=== PATIENT | male | born 1965 | race Caucasian/White ===

== ENCOUNTER → 2020-03-31 | Day surgery (SDC) | payer BC ==
[2020-03-28 10:47] VITALS: BMI 27.7
[~2020-03-31] MED LIST: LACTATED RINGERS 1,000 ML IV SCH; LIDOCAINE 1% (10MG/ML) FOR IV START INTRADERMA PRN; PROPOFOL 10 MG/ML 20 ML VIAL IV ONE
[2020-03-31 10:44] VITALS: TEMP 98
[2020-03-31 11:14] VITALS: RESP 17
--- NOTE | 2020-03-31 11:17 | P.PCN ---
Date of Procedure: 03/31/20 Description of Procedure: BRIEF HISTORY: Patient is a 54-year-old male presenting for outpatient colonoscopy for screening for malignant neoplasm of the colon. No prior colonoscopy. No change in bowel habits, blood per rectum or family history of colon cancer. PROCEDURE PERFORMED: Colonoscopy with polypectomy. PREOPERATIVE DIAGNOSIS: Screening for malignant neoplasm the colon, no prior colonoscopies ESTIMATED BLOOD LOSS: Minimal. IV sedation per Anesthesia. PROCEDURE: After informed consent was obtained, the patient, was brought into the endoscopy unit. IV sedation was administered by Anesthesia under continuous monitoring. Digital rectal examination was normal. Initially the Olympus CF-190 flexible video colonoscope was then inserted in the rectum, gradually advanced into the cecum without any difficulty. Careful examination was performed as the scope was gradually being withdrawn. Ileocecal valve and the appendiceal orifice were visualized and appeared normal. Prep was excellent. Mucosa of the cecum, ascending colon, transverse colon, descending colon, sigmoid colon, and rectum appeared normal. Diminutive 2 mm sigmoid colon polyp removed with cold forcep polypectomy. Retroflexion was performed in the rectum and no lesions were seen. The patient tolerated the procedure well. IMPRESSION: Diminutive sigmoid colon polyp removed with cold forceps. Otherwise, normal-appearing colon from rectum to cecum . RECOMMENDATIONS: Findings of this examination were discussed with the patient. Okay to resume diet. Okay to resume medication. Await pathology from polypectomy. Would recommend a colonoscopy in 7 years, pending pathology from polypectomy.
[2020-03-31 11:23] VITALS: BP 105/62; PULSE 71
== END ==
LOC: ORWHC2ENDO 10:00
PROVIDERS: ATTEND Internal Medicine
DX: Z12.11 Encounter for screening for malignant neoplasm of colon (principal); K63.5 Polyp of colon; I48.91 Unspecified atrial fibrillation; I10 Essential (primary) hypertension; E78.5 Hyperlipidemia, unspecified; M19.90 Unspecified osteoarthritis, unspecified site; F17.200 Nicotine dependence, unspecified, uncomplicated; Z79.82 Long term (current) use of aspirin; Z79.899 Other long term (current) drug therapy; Z98.890 Other specified postprocedural states
CPT/HCPCS: 88305; 45380; J2704

== ENCOUNTER 2020-07-08 10:55 | Day surgery (SDC) | payer BC ==
[2020-07-03 09:57] VITALS: BMI 28.3
[2020-07-08] MEDS ORDERED: SODIUM CHLORIDE 0.9% 1,000 ML IV ONE (11:40)
[2020-07-08] MEDS ORDERED: LIDOCAINE 1% INJ 10MG/ML (20 ML MDV) ONE ×2 (14:02→14:19)
[2020-07-08] MEDS ORDERED: PROTAMINE SULFATE 10 MG/ML 5 ML VIAL IV ONE (14:19)
[2020-07-08] MEDS ORDERED: fentaNYL (PF) 50 MCG/ML 2 ML AMP ONE (14:19)
[2020-07-08] MEDS ORDERED: SUCCINYLCHOLINE CHLORIDE 100 MG/5 ML SYR IV ONE (14:19)
[2020-07-08] MEDS ORDERED: HEPARIN SODIUM,PORCINE 10,000 UNIT/ML 1 ML VIAL ONE (14:19)
[2020-07-08] MEDS ORDERED: MIDAZOLAM 2 MG/2 ML VIAL ONE (14:19)
[2020-07-08] MEDS ORDERED: ISOPROTERENOL 250 MCG/1.25 ML SYR IV ONE (14:19)
[2020-07-08] MEDS ORDERED: ePHEDrine SULFATE/0.9% NACL/PF 50 MG/5 ML SYRINGE IV ONE (14:19)
[2020-07-08] MEDS ORDERED: PROPOFOL 10 MG/ML 20 ML VIAL IV ONE (14:19)
[2020-07-08] MEDS ORDERED: HEPARIN SOD,PORK IN 0.45% NACL 25,000 UNIT in 0.45% NACL 1 250ML.BAG IV ONE (14:30)
[2020-07-08] MEDS ORDERED: LIDOCAINE 1% INJ 10MG/ML (20 ML MDV) SQ ONE (15:05)
[2020-07-08] MEDS ORDERED: LACTATED RINGERS 1,000 ML IV ONE (15:30)
--- NOTE | 2020-07-08 16:50 | P.HPCAR ---
History of Present Illness This is Dr. Lai dictating an H/P on this patient The patient was interviewed and examined IMPRESSION / ASSESSMENT: Symptomatic paroxysmal atrial fibrillation, refractory to flecainide Symptoms of shortness of breath dizziness blurring of vision Intolerance to flecainide Prediabetes Current smoker History of PVCs PLAN: Proceed with pulmonary vein isolation for A. fib management HPI Patient was feel tired and fatigued. He does have palpitations. He had to reduce the dose of flecainide because of isolated symptoms and shortness of breath and tiredness and fatigue During A. fib he does palpitations short of breath dizziness and blurred vision He is intolerant of flecainide He also has PVCs He is prediabetic ROS: No fever chills or rigors, no cough, phlegm or expectoration, no nausea, vomiting or diarrhea, no hematuria, dysuria, no musculoskeletal complaints, no strokes or seizures, no skin lesions. EXAMINATION: Afebrile 98.1F pulse rate in the 50s blood pressure 146/77 mmHg No JVD Normal heart sounds normal S1 normal S2 Breath sounds are clear no rhonchi no crackles Abdomen soft nontender External days are warm no edema REVIEW OF LABS, ECG & MEDICAL DATA Medications reviewed and include ELIQUIS 5 mg twice daily baby aspirin atorvastatin 40 mg daily flecainide 50 mg once daily, metoprolol Physical Exam Vitals: Vital Signs Temp Pulse Resp BP Pulse Ox 07/08/20 11:38 98.1 F 54 L 16 146/77 95 Intake and Output 07/08/20 07/08/20 07/08/20 06:59 14:59 22:59 Intake Total 100 Balance 100 Intake: IV 100 Other: Weight 89.3 kg Past Medical History Past Medical History: Atrial Fibrillation, Asthma, COPD, Hyperlipidemia, Hypertension, Osteoarthritis (OA) Additional Past Medical History / Comment(s): , asthmatic bronchitis History of Any Multi-Drug Resistant Organisms: None Reported Past Surgical History: Orthopedic Surgery Additional Past Surgical History / Comment(s): Bilateral knee arthroscopy. COLONOSCOPY Past Anesthesia/Blood Transfusion Reactions: No Reported Reaction Smoking Status: Current every day smoker - Past Family History Mother Family Medical History: No Reported History Physical Examination Vital Signs Temp Pulse Resp BP Pulse Ox 07/08/20 11:38 98.1 F 54 L 16 146/77 95 Intake and Output 10/07/08/20 07/08/20 06:59 14:59 22:59 Intake Total 100 Balance 100 Intake: IV 100 Other: Weight 89.3 kg Results Current Medications Generic Name Dose Route Start Last Admin Trade Name Freq PRN Reason Stop Dose Admin Sodium Chloride 1,000 mls @ 20 mls/hr 07/08/20 05:43 Saline 0.9% IV .Q24H SELENA Intake and Output 07/08/20 07/08/20 07/08/20 06:59 14:59 22:59 Intake Total 100 Balance 100 Intake: IV 100 Other: Weight 89.3 kg Patient Weight 07/09/20 06:59 Weight 89.3 kg
[2020-07-08] MEDS ORDERED: ACETAMINOPHEN TAB 325 MG TAB PO PRN (16:55)
[2020-07-08] MEDS ORDERED: HYDROcodone/APAP 5-325MG 1 EACH TAB PO PRN (16:55)
[2020-07-08] MEDS ORDERED: IOPAMIDOL-370 50ML BTL INJ ONE (17:14)
--- NOTE | 2020-07-08 17:23 | P.EPPROC ---
- EP Procedure Note Electrophysiology Procedure Note: Diagnosis Atrial fibrillation, symptomatic, refractory to therapy, paroxysmal Intolerant of flecainide Result No left atrial appendage mass seen on intracardiac echo Successful pulmonary vein isolation of all veins using cryo-ablation Complete entrance block in all 4 veins confirmed No evidence for phrenic nerve injury Esophageal deflection YES , left-sided esophagus Electrical cardioversion with a synchronized shock across the chest NO Procedure details Patient was brought to the EP lab in a fasting state. Written informed consent was obtained prior to the procedure. Procedure performed under general anesthesia After initial muscle relaxant use, muscle relaxants were not given thereafter in order to assess phrenic nerve during procedure. Patient prepped and draped as per protocol Full cryo-set up with standard preparation of the cryoablation tools done. Femoral Venous access obtained on the right and left groins Venous and arterial Sheaths placed. Diagnostic catheters for the high right atrium, phrenic nerve stimulation and pacing, His bundle, RV and coronary sinus placed Intracardiac echo catheter placed. Long sheath placed in the right atrium Left and right transseptal catheterization performed under intracardiac echo guidance. Intravenous heparin with aCT above 300 Later, catheter positioning and balloon positioning in the left atrium, under intracardiac echo guidance Diagnostic EP study with Drug infusion Coronary sinus pacing and recording Baseline measurements Sinus cycle length 1072 ms, KS 133, QRS 102 ms and QT interval 412 ms AH 61, HV 50 Atrial pacing performed from the high right atrium and the coronary sinus RV pacing Sinus recovery times at 600 540 ms were 1269, 1439 and 1188 ms. AV node Wenckebach block 440 ms and VA Wenckebach block 450 ms High dose Isuprel started Burst stimulation and the Shree sinus and burst stimulation the high right atrium Transseptal catheterization performed RA pressure 0/-6/-2 LA pressure 6/-6/0 Transseptal catheterization performed with standard sheath. The cryoablation sheath was then placed with an over the wire exchange without any acute complications. All 4 pulmonary veins were isolated in the following sequence: Left superior followed by left inferior followed by right superior followed by right inferior The cryo-ablation balloon was placed at the os of each vein 1.5 mL of IV dye was injected to confirm an occluded vein Goal during cryoablation was to achieve complete occlusion of the pulmonary vein, achieve -30 degrees C at 30 seconds and achieve -40 degrees C at 60 seconds and a time to effect of less than 60-90 seconds, . If not the balloon was repositioned to obtain this result After completion of Cryoblation with durations from 180-240 seconds, entrance block was confirmed with the Attain circular catheter in a roving fashion around the antrum of the pulmonary veins Phrenic nerve pacing was performed from the SVC, right innominate vein area and diaphragm voltage was monitored. Diaphragmatic contractions were also monitored manually for strength of contraction. Parameter goals for each cryo freeze Complete occlusion of the appropriate vein -30 degrees C by 30 seconds -40 degrees C by 60 seconds Minimum between minus 40-55 degrees C Thaw time greater than 10 seconds Balloon visualized by intracardiac echo The esophagus was intubated. Esophageal Temperature monitoring with a CIRCA catheter formed. Esophageal deflection for hypothermia of the esophagus below 30 degrees C Left superior pulmonary vein Complete isolation, entrance block Left inferior pulmonary vein Complete isolation, entrance block Right superior pulmonary vein, during phrenic nerve pacing Complete isolation, entrance block Right inferior pulmonary vein, during phrenic nerve pacing Complete isolation, entrance block At the end of the procedure the Achieve catheter was once again used to check for entrance block Phrenic nerve stimulation was performed to confirm diaphragmatic stimulation the end of the procedure Cine fluoroscopy was performed at the very end of the procedure to confirm movement of both diaphragms with inspiration and expiration At the end of the procedure the patient was extubated Heparin was reversed Venous sheaths were removed and hemostasis assured Procedures performed (PVI - CRYO Ablation) Diagnostic EP study CS pacing and recording Left and right transseptal catheterization Catheter the mapping of the tachycardia (NOT 3D mapping) Intracardiac echocardiography Pulmonary vein isolation with transseptal and comprehensive EPS, [id number] Drug Infusion [id number]
[2020-07-08] MEDS ORDERED: ACETAMINOPHEN IV (For NPO) 1,000 MG in EMPTY BAG 1 BAG IVPB ONE (18:15)
[2020-07-08 19:49] VITALS: RESP 18
[2020-07-08] MEDS: APIXABAN 5 MG TAB PO SCH (20:26)
[2020-07-08] MEDS: SODIUM CHLORIDE 0.9% 1,000 ML IV SCH (20:27)
[2020-07-09] MEDS: SODIUM CHLORIDE 0.9% 1,000 ML IV SCH (06:47)
--- NOTE | 2020-07-09 07:48 | P.DS ---
Providers Attending physician: Robbin Lai Primary care physician: Pura Yao [facility] Course: Patient is doing well. He has very mild pleuritic chest discomfort when he takes deep breath and otherwise he has no pain with coronary conversation His throat is sore Respirations are normal he is resting comfortably in bed supine No dizziness lightheadedness no arrhythmias Twelve-lead ECG shows sinus rhythm normal ST segments Blood pressure 190/62 mmHg pulse rate in the 70s sinus mechanism Breath sounds are clear no rhonchi no crackles Normal heart sounds no rub no gallop No JVD Abdomen soft nontender No lower extremity edema His grams of healed well no hematoma minimal tenderness Impression Symptomatic paroxysmal atrial fibrillation Intolerant flecainide Dyslipidemia Prediabetes Status post cryoablation of the pulmonary veins with complete entrance block Suggest Discharge home this afternoon around 3 PM if he is stable 1 dose of colchicine 0.6 mg by mouth while in the hospital Follow-up with Dr. Lepe in 1 week It was explained to the patient that he must continue anticoagulation with ELIQUIS 5 mg twice daily for 3 months without interruption, post ablation Patient Condition at Discharge: Stable Plan - Discharge Summary Discharge Rx Participant: No New Discharge Prescriptions: Discontinued Metoprolol Succinate [Toprol XL] 50 mg PO DAILY Flecainide [Tambocor] 50 mg PO BID No Action Atorvastatin [Lipitor] 40 mg PO DAILY Aspirin 81 mg PO DAILY Apixaban [Eliquis] 5 mg PO BID Discharge Medication List Aspirin 81 mg PO DAILY 10/08/19 [History] Atorvastatin [Lipitor] 40 mg PO DAILY 10/08/19 [History] Apixaban [Eliquis] 5 mg PO BID 07/03/20 [History] Activity/Diet/Wound Care/Special Instructions: Post EP study - Ablation instructions 1. Keep access sites dry for 2 days. 2. No heavy lifting or straining for 2 days. 3. Avoid bending the hips repeatedly for 2 days. 4. You may go up and down stairs slowly Call if the following is noted 1. Bleeding, increasing swelling or pain at the access sites. 2. Increasing chest discomfort, especially upon taking a deep breath. 3. Increasing shortness of breath, at rest or with exertion. 4. Undue cough / phlegm 5. Difficulty or pain while swallowing. 6. Pain or change in color in the extremities. 7. Fever, chills, rigors. 8. Increasing headache or neurologic symptoms. 9. Dizziness, fainting, palpitations Start flecainide and metoprolol Continue ELIQUIS
--- NOTE | 2020-07-09 07:51 | P.PRLE ---
RE: Chon Moreno Dear Pura Givens underwent pulmonary vein isolation with cryoablation yesterday. The procedure was successful and we could not induce any further atrial fibrillation thereafter At this time I was asked him to stop flecainide and metoprolol completely since he is intolerant of both medications but he must continue ELIQUIS 5 mg twice daily for a minimum of 3 months Long-term need for anticoagulation should be based on his TOM VASC score He will continue to follow with you and Dr. Lepe as before Thank you for entrusting me with the care of the patient Warm regards Sincerely Robbin Lai
[2020-07-09] MEDS ORDERED: COLCHICINE 0.6 MG EACH PO ONE (08:26)
[2020-07-09] MEDS: APIXABAN 5 MG TAB PO SCH (08:56)
[2020-07-09] MEDS ORDERED: ATORVASTATIN 40 MG TAB PO SCH (09:00)
[2020-07-09] MEDS ORDERED: ASPIRIN 81 MG PO SCH (09:00)
[2020-07-09 09:10] VITALS: BP 127/70; PULSE 70; TEMP 97.9
== END 2020-07-09 14:53 | disposition home or self-care (01) ==
LOC: CATHEP 10:55 → 3NCARDOBS 16:55 → CATHEP 07-09 14:53
PROVIDERS: ATTEND Internal Medicine Clinical Cardiac Electrophysiology
DX: I48.0 Paroxysmal atrial fibrillation (principal); R73.03 Prediabetes; I49.3 Ventricular premature depolarization; F17.210 Nicotine dependence, cigarettes, uncomplicated; J44.9 Chronic obstructive pulmonary disease, unspecified; E78.5 Hyperlipidemia, unspecified; I10 Essential (primary) hypertension; M19.90 Unspecified osteoarthritis, unspecified site; Z98.890 Other specified postprocedural states; Z79.01 Long term (current) use of anticoagulants; Z79.82 Long term (current) use of aspirin; Z79.899 Other long term (current) drug therapy
CPT/HCPCS: 85347; 93623; 93662; 93609; 93656; C1759; C1769 ×4; C1894 ×2; C1730 ×2; C1893; C1733; C1766; J2250; J2720; J1644 ×2; J2001; J3010; J0131; J0330; J2704; Q9967

== ENCOUNTER → 2021-02-10 | Outpatient (CLI) | payer BC ==
--- NOTE | 2021-02-10 10:00 | CT ---
EXAMINATION TYPE: CT soft tissue neck w con DATE OF EXAM: 02/10/2021 COMPARISON: None HISTORY: Pt c/o Lt inner ear pressure with h/o Lt salivary gland swelling. Dr & patient do not feel a ny lumps, nodules, or masses. CT DLP: 405.8 mGycm CONTRAST: CT scan of the neck is performed with IV Contrast, patient injected with 100 mL of Isovue 300. Contrast enhanced CT of the neck was performed from the skull base through the lung apices. AIRWAY: The supraglottic, glottic, and subglottic portions of the airway appear patent and free of mass. SALIVARY GLANDS: The submandibular and parotid glands are free of mass or inflammatory process. THYROID GLAND: No nodules or masses seen. LYMPH NODES: No adenopathy seen greater than 1cm. LUNG APICES: No nodule or mass is seen. OTHER: Vascular structures are patent. No significant degenerative change of the cervical spine. N o abscess seen. IMPRESSION: No distinct abnormality appreciated. Correlate clinically.
== END | disposition home or self-care (01) ==
LOC: RADCTMAIN 09:14
PROVIDERS: ATTEND Otolaryngology
DX: K11.8 Other diseases of salivary glands (principal)
CPT/HCPCS: 70491; Q9967

== ENCOUNTER → 2023-05-14 | Outpatient (CLI) | payer OTHER ==
[2023-05-14 15:15] LABS: ALT 30 U/L (10-49); AST 21 U/L (14-35); Chol/HDL Ratio 3.27 Ratio; LDL Cholesterol,Calculated 35.9 mg/dL (0.0-131.0)
== END | disposition home or self-care (01) ==
LOC: LABWHC1 08:27
PROVIDERS: ATTEND Internal Medicine
DX: E78.2 Mixed hyperlipidemia (principal)
CPT/HCPCS: 36415; 80061; 84450; 84460

== ENCOUNTER → 2023-11-15 | Outpatient (CLI) | payer OTHER ==
--- NOTE | 2023-11-15 16:40 | CT ---
EXAMINATION TYPE: CT heart w calcium score DATE OF EXAM: 11/15/2023 COMPARISON: None HISTORY: Screening for cardiovascular disorder. 213.9 CT DLP: 85.2 mGycm Automated exposure control for dose reduction was used. CT CALCIUM SCORING Coronary calcium is a marker for plaque (fatty deposits) in a blood vessel or atherosclerosis (harden ing of the arteries). The presence and amount of calcium detected in a coronary artery by the CT sca n, indicates the presence and amount of atherosclerotic plaque. These calcium deposits appear years before the development of heart disease symptoms such as chest pain and shortness of breath. A calcium score is computed for each of the coronary arteries based upon the volume and density of th e calcium deposits. This can be referred to as your calcified plaque burden. It does not correspond directly to the percentage of narrowing in the artery but does correlate with the severity of the un derlying coronary atherosclerosis. PROCEDURE TECHNIQUE - Prospective Gating was used. Slice thickness: 3mm. Density threshold (HU): 130, Pixel threshold: 3, Algorithm: discrete. RESULTS Region: LM Calcium Score ([place]): 0 Volume (mm3): 0 Mass (g): 0 Region: RCA Calcium Score ([place]): 277.53 Volume (mm3): 208.15 Mass (g): 69.38 Region: LAD Calcium Score ([place]): 4.05 Volume (mm3): 6.07 Mass (g): 2.02 Region: CX Calcium Score ([place]): 31.47 Volume (mm3): 30.92 Mass (g): 10.31 Region: PDA Calcium Score ([place]): 0 Volume (mm3): 0 Mass (g): 0 Total: Calcium Score ([place]): 313.05 Volume (mm3): 345.14 Mass (g): 81.71 TOTAL CALCIUM SCORE: 313.05 IMPRESSION: Calcium Score: 101-400 Implication: Definite, at least moderate atherosclerotic plaque. Risk of Coronary Artery Disease: Mild coronary artery disease highly likely, significant narrowings p ossible CALCIUM SCORE IMPLICATION RISK OF C ORONARY ARTERY DISEASE 0 No identifiable plaque Very low, generally less than 5% 1-10 Minimal identifiable plaque Very unlikely, less than 10% 11-100 Definite, at least mild atherosclerotic plaque Mild or m inimal coronary narrowings likely 101-400 Definite, at least moderate atherosclerotic plaque Mild coronary ar brigido disease highly likely, significant narrowing possible 401 or Higher Extensive atherosclerotic plaque High lik elihood of at least one significant coronary narrowing
== END | disposition home or self-care (01) ==
LOC: RADCTMAIN 14:54
PROVIDERS: ATTEND Internal Medicine
DX: Z13.6 Encounter for screening for cardiovascular disorders (principal); I25.10 Atherosclerotic heart disease of native coronary artery without angina pectoris; E78.2 Mixed hyperlipidemia
CPT/HCPCS: 75571

== ENCOUNTER → 2023-12-24 | Outpatient (CLI) | payer OTHER ==
[2023-12-24 13:17] LABS: Chol/HDL Ratio 6.04 Ratio; HDL Cholesterol 38.1 mg/dL (40.00-60.00); VLDL Calculation 96.6 mg/dL (5.00-40.00)
== END | disposition home or self-care (01) ==
LOC: LABWHC1 08:00
PROVIDERS: ATTEND Internal Medicine
DX: E78.2 Mixed hyperlipidemia (principal)
CPT/HCPCS: 36415; 80061; 83721; 84450; 84460

== ENCOUNTER → 2024-09-01 | Outpatient (CLI) | payer OTHER ==
[2024-09-01 13:03] LABS: ALT 39 U/L (10-49); AST 30 U/L (14-35); Chol/HDL Ratio 5.01 Ratio; LDL Cholesterol,Calculated 89.7 mg/dL (0.0-131.0)
== END | disposition home or self-care (01) ==
LOC: LABWHC1 07:52
PROVIDERS: ATTEND Internal Medicine
DX: E78.2 Mixed hyperlipidemia (principal)
CPT/HCPCS: 36415; 80061; 84450; 84460

== ENCOUNTER 2025-04-19 15:15 | Emergency (ER) | payer BC, OTHER ==
--- NOTE | 2025-04-19 15:35 | ED ---
Chest Pain HPI - General Chief Complaint: Chest Pain Stated Complaint: Chest Tightness Time Seen by Provider: 04/19/25 15:26 Source: patient Mode of arrival: ambulatory Limitations: no limitations - History of Present Illness Initial Comments: This patient is a 60-year-old man who presents to have evaluation of chest pain. The patient states that he was driving this morning at 5:30 AM when the pain came on in the left upper chest. He states that it has been somewhat intermittent but present more often than not. It does seem to go to the left shoulder. He states he does have some tightness when he breathes. No diaphoresis, palpitations, nausea or vomiting. Patient states that he last had a stress test 2 years ago. He does currently vape Complaint: chest pain -: hour(s) Onset: during rest Pain Location: left chest Pain Radiation: LUE Severity: mild Quality: tightness Consistency: intermittent Improves With: nothing Worsens With: nothing Treatments Prior to Arrival: none - Related Data Home Medications Medication Instructions Recorded Confirmed Aspirin 81 mg PO DAILY 10/08/19 07/08/20 Atorvastatin [Lipitor] 40 mg PO DAILY 10/08/19 07/08/20 Apixaban [Eliquis] 5 mg PO BID 07/03/20 07/08/20 Allergies Allergy/AdvReac Type Severity Reaction Status Date / Time No Known Allergies Allergy Verified 04/19/25 15:20 Review of Systems ROS Statement: Those systems with pertinent positive or pertinent negative responses have been documented in the HPI. ROS Other: All systems not noted in ROS Statement are negative. Constitutional: Denies: fever, chills, weakness Respiratory: Denies: cough, dyspnea Cardiovascular: Reports: chest pain. Denies: palpitations, orthopnea, edema, syncope Gastrointestinal: Denies: abdominal pain, nausea, vomiting Genitourinary: Denies: dysuria, hematuria Musculoskeletal: Denies: back pain Skin: Denies: rash Neurological: Denies: headache, weakness, numbness EKG Findings - EKG Results: EKG: interpreted by MICHAEL, sinus rhythm (Rate 74 bpm), normal axis, normal QRS, normal ST/T, no acute changes - [place], Pacemaker, Normal: Normal tracing: normal tracing Past Medical History Past Medical History: Atrial Fibrillation, Asthma, COPD, Hyperlipidemia, Hypertension Additional Past Medical History / Comment(s): , asthmatic bronchitis History of Any Multi-Drug Resistant Organisms: None Reported Past Surgical History: Orthopedic Surgery Additional Past Surgical History / Comment(s): Bilateral knee arthroscopy Past Anesthesia/Blood Transfusion Reactions: No Reported Reaction Past Psychological History: No Psychological Hx Reported Smoking Status: Current every day smoker, Vaper Past Alcohol Use History: Occasional Past Drug Use History: None Reported - Past Family History Mother Family Medical History: No Reported History General Exam Limitations: no limitations General appearance: alert, in no apparent distress Head exam: Present: atraumatic, normocephalic Eye exam: Present: normal appearance. Absent: scleral icterus, conjunctival injection ENT exam: Present: normal oropharynx Neck exam: Present: normal inspection Respiratory exam: Present: normal lung sounds bilaterally. Absent: respiratory distress, wheezes, rales, rhonchi, stridor, chest wall tenderness, accessory muscle use Cardiovascular Exam: Present: regular rate, normal rhythm, normal heart sounds. Absent: systolic murmur, diastolic murmur, rubs, gallop GI/Abdominal exam: Present: soft. Absent: distended, tenderness, guarding, rebound, rigid, mass Extremities exam: Present: normal inspection, normal capillary refill. Absent: pedal edema, calf tenderness Back exam: Present: normal inspection. Absent: CVA tenderness (R), CVA tenderness (L) Neurological exam: Present: alert Skin exam: Present: warm, dry, intact, normal color. Absent: rash Course Vital Signs 04/19/25 04/19/25 04/19/25 15:17 15:30 16:00 Temperature 98.0 F Pulse Rate 93 82 86 Respiratory 18 20 21 Rate Blood Pressure 143/85 148/84 154/87 O2 Sat by Pulse 98 98 98 Oximetry 04/19/25 04/19/25 16:30 18:57 Temperature 98.1 F Pulse Rate 73 67 Respiratory 17 16 Rate Blood Pressure 137/68 109/73 O2 Sat by Pulse 98 97 Oximetry Chest Pain MDM - MDM The patient had chest x-ray that I interpreted as negative for acute infiltrate, pneumothorax, congestive heart failure. This patient is a 60-year-old man with chest pain and risk factors. His initial workup is negative. The pain had started early this morning and there should be a positive troponin if this represents IN. Discussed with patient that I would like to admit him to have him seen by cardiology but the patient states he is feeling better and will will follow with them as outpatient. He does agree to return if symptoms recur or if he is not able to get in with the medical records specialist as outpatient. Was pt. sent in by a medical professional or institution (, [facility], STOPPER MAKER HELPER, urgent care, hospital, or residential...) When possible be specific @ -[No] Did you speak to anyone other than the patient for history (EMS, parent, family, police, friend...)? What history was obtained from this source @ -[No] Did you review nursing and triage notes (agree or disagree)? Why? @ -[I reviewed and agree with nursing and triage notes] Were old charts reviewed (outside hosp., previous admission, EMS record, old EKG, old radiological studies, urgent care reports/EKG's, residential records)? Report findings @ -[No old charts were reviewed] Differential Diagnosis (chest pain, altered mental status, abdominal pain women, abdominal pain men, vaginal bleeding, weakness, fever, dyspnea, syncope, headache, dizziness, GI bleed, back pain, seizure, CVA, palpatations, mental health, musculoskeletal)? @ -[Differential Chest Pain: Stable Angina, Unstable Angina, STEMI, NSTEMI Aortic Dissection, Pneumothorax, Musculoskeletal, Esophageal Spasm GERD, Cholecystitis, Pancreatitis, Zoster, this is not meant to be an all-inclusive list. EKG interpreted by me (3pts min.). @ -[I interpreted as above] X-rays interpreted by me (1pt min.). @ -[I interpreted as above CT interpreted by me (1pt min.). @ - U/S interpreted by me (1pt. min.). @ -[None done] What testing was considered but not performed or refused? (CT, X-rays, U/S, labs)? Why? @ -[None] What meds were considered but not given or refused? Why? @ -[None] Did you discuss the management of the patient with other professionals (professionals i.e. [facility] Pichardo, STOPPER MAKER HELPER, lab, RT, psych nurse, social science analyst, knapsack sprayer, teacher, financial compliance officer, outsole caser)? Give summary @ -[No] Was smoking cessation discussed for >3mins.? @ -[No] Was critical care preformed (if so, how long)? @ -[No] Were there social determinants of health that impacted care today? How? (Homelessness, low income, unemployed, alcoholism, drug addiction, transportation, low edu. Level, literacy, decrease access to med. care, fdc, rehab)? @ -[No] Was there de-escalation of care discussed even if they declined (Discuss DNR or withdrawal of care, Hospice)? DNR status @ -[No] What co-morbidities impacted this encounter? (DM, HTN, Smoking, COPD, CAD, Cancer, CVA, ARF, Chemo, Hep., AIDS, mental health diagnosis, sleep apnea, morbid obesity)? @ -[Hypertension, smoking Was patient admitted / discharged? Hospital course, mention meds given and route, prescriptions, significant lab abnormalities, going to OR and other pertinent info. @ -[See above Undiagnosed new problem with uncertain prognosis? @ -[No] Drug Therapy requiring intensive monitoring for toxicity (Heparin, Nitro, Insulin, Cardizem)? @ -[No] Were any procedures done? @ -[No] Diagnosis/symptom? @ -[Acute chest pain Acute, or Chronic, or Acute on Chronic? @ -[Acute Uncomplicated (without systemic symptoms) or Complicated (systemic symptoms)? @ -[Uncomplicated Side effects of treatment? @ -[No] Exacerbation, Progression, or Severe Exacerbation? @ -[No] Poses a threat to life or bodily function? How? (Chest pain, [place], [place], pneumonia, PE, COPD, DKA, ARF, appy, cholecystitis, CVA, Diverticulitis, Homicidal, Suicidal, threat to staff... and all critical care pts) @ -[There is risk of cardiac etiology, see the discussion above, requires further cardiology evaluation All treatments are based on ideal body weight as in ED triage Disposition Clinical Impression: Chest pain Disposition: HOME SELF-CARE Condition: Good Instructions (If sedation given, give patient instructions): Chest Pain (ED) Additional Instructions: As we discussed, follow-up with the medical records specialist. If there is any problem in getting into the medical records specialist in the near term definitely return to the emergency department we can have you admitted to see the medical records specialist in the hospital. If your symptoms recur or you are feeling worse in any way return to the emergency department Is patient prescribed a controlled substance at d/c from ED?: No Referrals: Pura Samayoa DO [Primary Care Provider] - 1-2 days
[2025-04-19 15:47] LABS: Basophils # (A) 0.03 10*3/uL (0.00-0.10); Basophils % (A) 0.5 %; Eosinophils # (A) 0.08 10*3/uL (0.04-0.35); Eosinophils % (A) 1.3 %; HCT 40.4 % (39.6-50.0); HGB 14.3 g/dL (13.0-17.0); Lymphocytes # (A) 2.93 10*3/uL (0.90-5.00); Lymphocytes % (A) 47.8 %; MCH 31.3 pg (27.0-32.0); MCHC 35.4 g/dL (32.0-37.0); MCV 88.4 fL (80.0-97.0); Monocytes # (A) 0.70 10*3/uL (0.20-1.00); Monocytes % (A) 11.4 %; Neutrophils # (A) 2.36 10*3/uL (1.80-7.70); Neutrophils % (A) 38.5 %; Platelet Count 245 10*3/uL (140-440); RBC 4.57 10*6/uL (4.40-5.60); RDW 12.4 % (11.5-14.5); WBC 6.13 10*3/uL (4.50-10.00)
[2025-04-19] MEDS: NITROGLYCERIN SL TABS 0.4 MG TAB SUBLINGUAL STA (15:52)
[2025-04-19] MEDS: ASPIRIN 81 MG PO STA (15:52)
[2025-04-19 16:00] LABS: ALT 35 U/L (4-49); African American GFR (CKD) >90 (>60 ml/min/1.73 sqM); Anion Gap 11 mmol/L; Blood Urea Nitrogen 14 mg/dL (9-20); Calcium 9.5 mg/dL (8.4-10.2); Carbon Dioxide 24 mmol/L (22-30); Chloride 103 mmol/L (98-107); Glucose 106 mg/dL (74-99); Non-African American GFR(CKD) >90 (>60 ml/min/1.73 sqM); Sodium 138 mmol/L (137-145)
[2025-04-19 16:08] LABS: Albumin 4.6 g/dL (3.5-5.0); Total Protein 7.4 g/dL (6.3-8.2)
[2025-04-19 16:09] LABS: AST 42 U/L (17-59); Alkaline Phosphatase 86 U/L (38-126); Magnesium 2.1 mg/dL (1.6-2.3); Potassium 4.2 mmol/L (3.5-5.1)
[2025-04-19 16:20] LABS: INR 0.9 (<1.2); Partial Thromboplastin Time 23.5 sec (22.0-30.0); Prothrombin Time 10.2 sec (10.0-12.5)
--- NOTE | 2025-04-19 16:26 | XR ---
EXAMINATION TYPE: XR chest 2V DATE OF EXAM: 04/19/2025 COMPARISON: 10/08/2019 CLINICAL INDICATION: Male, 60 years old with history of Chest Pain; , TECHNIQUE: XR chest 2V views of the chest. FINDINGS: The lungs are clear and there is no pneumothorax, pleural effusion, or focal pneumonia. Heart size normal and no overt failure. Osseous structures intact. IMPRESSION: 1. No acute process. [facility], , 04/19/2025 4:24 PM
[2025-04-19 18:59] VITALS: BP 109/73; PULSE 67; RESP 16; TEMP 98.1
== END 2025-04-19 18:59 | disposition home or self-care (01) ==
LOC: EC 15:15
DX: R07.9 Chest pain, unspecified (principal); F17.290 Nicotine dependence, other tobacco product, uncomplicated; I10 Essential (primary) hypertension
CPT/HCPCS: 36415; 71046; 80053; 83735; 84484; 85025; 85610; 85730; 93005; 99285